=== PATIENT | female | born 1945 | race Caucasian/White ===

== ENCOUNTER 2017-11-01 21:51 | Emergency (ER) | payer MEDICARE ==
--- NOTE | 2017-11-02 00:26 | ED ---
Sudha Merino Elizabeth, scribed for Lisa Davies MD on 11/01/17 at 2238 . Lower Extremity - HPI Summary HPI Summary: This patient is a 72 year old F presenting to [facility] with a chief complaint of headache and right knee, lower leg, and ankle pain after a fall down 2 stairs that occurred at 21:00 this evening. The patient reports that she hit her head on the concrete floor. The patient rates the pain 2/10 in severity. Symptoms aggravated by weight bearing. Symptoms alleviated by lying down. The patient notes that she has previously fractured her right leg that has healed. The patient declined pain medication. - History of Current Complaint Chief Complaint: EDExtremityLower Stated Complaint: FALL Time Seen by Provider: 11/01/17 22:22 Hx Obtained From: Patient Mechanism Of Injury: Fall From Height Of: - 2 stairs Onset of Pain: Immediate Onset/Duration: Hours - since 21:00 Severity Initially: Mild Severity Currently: Mild Pain Intensity: 2 Pain Scale Used: 0-10 Numeric Timing: Constant Location: Is Discrete @ - right knee, right lower leg, right ankle, pain above right eye Associated Signs And Symptoms: Positive: Swelling, Bruising - around her right eye, Knee Pain Aggravating Factor(s): Weight Bearing Alleviating Factor(s): Rest Able to Bear Weight: Yes - Allergies/Home Medications Allergies/Adverse Reactions: Allergies Allergy/AdvReac Type Severity Reaction Status Date / Time Penicillins Allergy Anaphylatic Verified 11/01/17 22:02 Shock Sulfa (Sulfonamide Allergy Anaphylatic Verified 11/01/17 22:02 Antibiotics) Shock ENVIRONMENTAL Allergy Unknown Uncoded 09/01/15 10:24 Reaction Details Home Medications: Home Medications Azelastine HCl 1 spray NASAL DAILY 11/01/17 [History Confirmed 11/01/17] Fluoride (Sodium) [Denta 5000 Plus] 1 applic PO DAILY 11/01/17 [History Confirmed 11/01/17] PMH/Surg Hx/FS Hx/Imm Hx Endocrine/Hematology History: Reports: Hx Anemia - AT AGE 7 OR 8 - NO PROBLEMS SINCE Musculoskeletal History: Reports: Hx Arthritis - KNEES-DJD, BACK Denies: Hx Osteoporosis Sensory History: Reports: Hx Cataracts, Hx Contacts or Glasses - GLASSES Denies: Hx Hearing Aid Opthamlomology History: Reports: Hx Cataracts, Hx Contacts or Glasses - GLASSES Neurological History: Reports: Other Neuro Impairments/Disorders - 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 [place] 20 [place] [facility]. RIGHT BREAST LUMPECTOMY-2014 Hx Anesthesia Reactions: No Infectious Disease History: No Infectious Disease History: Denies: Traveled Outside the [place] in Last 30 Days - Family History Known Family History: Positive: Hypertension - Social History Alcohol Use: Rare Substance Use Type: Reports: None Smoking Status (MU): Never Smoked Tobacco Review of Systems Negative: Epistaxis Negative: Chest Pain Negative: Vomiting Skin: Other - right knee pain, right lower leg pain, right ankle pain Positive: Headache - pain above right eye All Other Systems Reviewed And Are Negative: Yes Physical Exam - Summary Physical Exam Summary: VITAL SIGNS: Reviewed. GENERAL: ~Patient is a well-developed and nourished female who is lying comfortable in the stretcher. Patient is not in any acute respiratory distress. HEAD AND FACE: No hematomas or skull depressions. No sinus tenderness. Mild ecchymosis over the right lower eyelid without welling and without tenderness. EYES: PERRLA, EOMI x 2, No injected conjunctiva, no nystagmus. EARS: Hearing grossly intact. Ear canals and tympanic membranes are within normal limits. MOUTH: Oropharynx within normal limits. NECK: Supple, trachea is midline, no adenopathy, no JVD, no carotid bruit, no c- spine tenderness, neck with full ROM. CHEST: Symmetric, no tenderness at palpation LUNGS: Clear to auscultation bilaterally. No wheezing or crackles. CVS: Regular rate and rhythm, S1 and S2 present, no murmurs or gallops appreciated. ABDOMEN: Soft, non-tender. No signs of distention. No rebound no guarding, and no masses palpated. Bowel sounds are normal. EXTREMITIES: FROM in all major joints, no cyanosis or clubbing. Swelling of the right ankle mainly over the lateral malleolus NEURO: Alert and oriented x 3. No acute neurological deficits. Speech is normal and follows commands. SKIN: Dry and warm Triage Information Reviewed: Yes Vital Signs On Initial Exam: Initial Vitals Temp Pulse Resp BP Pulse Ox 98.2 F 78 20 122/60 98 11/01/17 21:55 11/01/17 21:55 11/01/17 21:55 11/01/17 21:55 11/01/17 21:55 Vital Signs Reviewed: Yes Procedures - Splinting Location: right foot extended to mid-thigh Hand-Made Type: orthoglass Splint: posterior/U-splint Pre-Proc Neuro Vasc Exam: normal Post-Proc Neuro Vasc Exam: unchanged from pre-exam Diagnostics - Vital Signs Vital Signs Temp Pulse Resp BP Pulse Ox 11/01/17 22:21 66 128/55 97 11/01/17 21:55 98.2 F 78 20 122/60 98 - Laboratory Lab Statement: Any lab studies that have been ordered have been reviewed, and results considered in the medical decision making process. - Radiology Right Ankle Xray Interpretation: Positive (See Comments) - tri-malleolar fracture, mortise intact Radiology Interpretation Completed By: ED Physician - Dr. Davies, pending official report Right leg Xray Interpretation: Positive (See Comments) - Proximal fibular fracture Radiology Interpretation Completed By: ED Physician - Dr. Davies, pending official report - CT CT Brain CT Interpretation: No Acute Changes - no acute findings. Dr. Davies has reviewed this report CT Interpretation Completed By: Radiologist Re-Evaluation - Re-Evaluation 1st re-eval Re-Evaluation Time: 23:50 Change: Improved Comment: Patient's right foot extended to mid-thigh was splinted. Lower Extremity Course/Dx - Course Course Of Treatment: CT Brain reveals, per radiologist, no acute changes. ED physician has reviewed this radiology report. Right leg x-ray reveals proximal fibular fracture as interpreted by Dr. Davies, pending official report. Right ankle x-ray reveals tri-malleolar fracture, mortise intact, as interpreted by Dr. Davies, pending official report. In the ED course the patients right foot extended to mid-thigh was splinted with an orthoglass posterior/U-splint. Patient will be discharged home with prescription for oxycodone and follow up from Dr. Childs, orthopedist, tomorrow. The patient is agreeable with this plan. - Diagnoses Provider Diagnoses: Ankle fracture, Right fibular fracture Discharge - Sign-Out/Discharge Documenting (check all that apply): Discharge/Admit/Transfer - Discharge Plan Condition: Stable Disposition: HOME Prescriptions: oxyCODONE/Acetamin 5/325 MG* [Percocet 5/325 TAB*] 1 tab PO Q6H PRN #14 tab MDD 4 PRN Reason: Pain Patient Education Materials: Ankle Fracture (ED), Leg Fracture (ED) Referrals: Quinton Childs MD [Medical Doctor] - 2 Days Additional Instructions: Follow up with Dr. Childs, orthopedist, on 11/02/17. Return to the emergency department with any new or worsening symptoms. The documentation as recorded by the Sudha ulloa Elizabeth accurately reflects the service I personally performed and the decisions made by , Lisa Davies MD.
[2017-11-02 00:30] VITALS: BP 127/66
--- NOTE | 2017-11-02 07:56 | RAD ---
HISTORY: Fall, right knee pain COMPARISONS: None VIEWS: 4, Frontal, lateral, axial, and oblique views of the right knee FINDINGS: BONE DENSITY: Normal. BONES: There is a probable nondisplaced fracture of the proximal fibular diaphysis. JOINTS: There is moderate tricompartmental osteoarthritis. ALIGNMENT: There is no dislocation. SOFT TISSUES: Unremarkable. OTHER FINDINGS: None. IMPRESSION: PROBABLE NONDISPLACED FRACTURE OF THE PROXIMAL FIBULAR DIAPHYSIS. RECOMMEND DEDICATED IMAGING OF THE FORELEG.
--- NOTE | 2017-11-02 07:58 | RAD ---
HISTORY: Fall, lower leg pain COMPARISONS: Right knee and right ankle dated November 01, 2017 VIEWS: 2, Frontal and lateral views of the right foreleg FINDINGS: BONE DENSITY: Normal. BONES: There is a nondisplaced fracture of the posterior distal tibia and medial malleolus. There is no stress fracture of the proximal fibular diaphysis. The distal fibular fracture seen on the ankle films are not well-visualized on the current examination. JOINTS: There is osteoarthritis of the knee. ALIGNMENT: There is no dislocation. SOFT TISSUES: Unremarkable. OTHER FINDINGS: None. IMPRESSION: NONDISPLACED OF THE PROXIMAL FIBULA AND DISTAL TIBIA
--- NOTE | 2017-11-02 07:59 | RAD ---
HISTORY: Fall, right ankle pain COMPARISONS: April 18, 2006 VIEWS: 3, Frontal, lateral, and oblique views of the right ankle FINDINGS: BONE DENSITY: Normal. BONES: There is nondisplaced fractures of the posterior distal tibia. There is a nondisplaced fracture of the medial malleolus. There is a small bone fragment off the distal fibula consistent with avulsion injury.. There is chronic remote post traumatic change of the distal tibial diaphysis.. JOINTS: There is no arthropathy. ALIGNMENT: There is no dislocation. SOFT TISSUES: Unremarkable. OTHER FINDINGS: None. IMPRESSION: NONDISPLACED FRACTURES OF THE DISTAL FIBULA AND DISTAL TIBIA.
--- NOTE | 2017-11-02 08:00 | RAD ---
INDICATION: Fall. Intracranial injury. COMPARISON: None TECHNIQUE: Noncontrast axial source images were acquired from the skull base to the vertex. FINDINGS: Ventricles/sulci: The ventricles and cisterns are normal in size and configuration for age. Brain parenchyma: There is no focal parenchymal finding, evidence of intracranial mass, or intracranial mass effect. Intracranial hemorrhage:None. Extra-axial spaces: There are no abnormal extra axial fluid collections or evidence of extra-axial mass. Calvarium: There is no calvarial fracture or other calvarial abnormality. Scalp: There is no evidence of scalp or extracalvarial soft tissue abnormality. Paranasal sinuses/mastoid: The paranasal sinuses and mastoid air cells are clear. Other: None. IMPRESSION: No acute intrarenal findings
--- NOTE | 2017-11-10 07:47 | ED ---
Progress - Progress Note Progress Note: Pt's final XR read more detailed from [facility] - recommended dedicated foreleg imaging. Spoke w/ pt who reports she had surgery on w/ Dr. Alvarado - f /u is scheduled. No changes. Re-Evaluation - Re-Evaluation 1st re-eval Re-Evaluation Time: 23:50 Change: Improved Comment: Patient's right foot extended to mid-thigh was splinted. Course/Dx - Course Course Of Treatment: CT Brain reveals, per radiologist, no acute changes. ED physician has reviewed this radiology report. Right leg x-ray reveals proximal fibular fracture as interpreted by Dr. Davies, pending official report. Right ankle x-ray reveals tri-malleolar fracture, mortise intact, as interpreted by Dr. Davies, pending official report. In the ED course the patients right foot extended to mid-thigh was splinted with an orthoglass posterior/U-splint. Patient will be discharged home with prescription for oxycodone and follow up from Dr. Childs, orthopedist, tomorrow. The patient is agreeable with this plan. - Diagnoses Provider Diagnoses: Ankle fracture, Right fibular fracture Discharge - Sign-Out/Discharge Documenting (check all that apply): Post-Discharge Follow Up - Discharge Plan Condition: Stable Disposition: HOME Patient Education Materials: Ankle Fracture (ED), Leg Fracture (ED) Referrals: Quinton Childs MD [Medical Doctor] - 2 Days Additional Instructions: Follow up with Dr. Childs, orthopedist, on 11/02/17. Return to the emergency department with any new or worsening symptoms. - Billing Disposition and Condition Condition: STABLE Disposition: HOME
== END 2017-11-02 00:30 | disposition home or self-care (01) ==
LOC: ED 21:51
DX: S82.854A Nondisplaced trimalleolar fracture of right lower leg, initial encounter for closed fracture (principal); S82.831A Other fracture of upper and lower end of right fibula, initial encounter for closed fracture; W10.9XXA Fall (on) (from) unspecified stairs and steps, initial encounter; Y92.9 Unspecified place or not applicable; R51 Headache; M17.11 Unilateral primary osteoarthritis, right knee; Z88.2 Allergy status to sulfonamides; Z88.0 Allergy status to penicillin
CPT/HCPCS: 70450; 99283

== ENCOUNTER 2017-11-08 07:21 | Day surgery (SDC) | payer MEDICARE ==
[~2017-11-08 07:21] MED LIST: Buffered Lidocaine 0.9% SYRIN* 5 ML/SYR SYRINGE INTRADERM ONE
[2017-11-08] MEDS ORDERED: PROCHLORPERAZINE INJ 5 MG/ML 2 ML VIAL IV PRN (08:31)
[2017-11-08] MEDS ORDERED: HYDROmorphone INJ* 1 MG/ML CARPUJECT SYRINGE IV PRN (08:31)
[2017-11-08] MEDS ORDERED: Ondansetron ODT TAB* 4 MG PO PRN (08:31)
[2017-11-08] MEDS ORDERED: DiMENhydriNATE IV* 50 MG/ML VIAL IV PUSH PRN (08:31)
[2017-11-08] MEDS ORDERED: Naloxone* 0.4 MG/ML 1 ML VIAL IV PRN (08:31)
[2017-11-08] MEDS ORDERED: Acetaminophen TAB* 325 MG PO PRN (08:31)
[2017-11-08] MEDS ORDERED: fentaNYL* 50 MCG/ML 2 ML VIAL (100 MCG VIAL) IV PRN (08:31)
[2017-11-08] MEDS ORDERED: fentaNYL* 50 MCG/ML 2 ML VIAL (100 MCG VIAL) ONE (08:47)
[2017-11-08] MEDS ORDERED: Midazolam* 1 MG/ML 2 ML VIAL (2 MG) ONE (08:47)
[2017-11-08] MEDS ORDERED: Clindamycin 900 MG IVPREMIX(* 900 MG/50 ML SDV IV ONE (08:50)
[2017-11-08] MEDS ORDERED: Bupivacaine-MPF SPINAL* 7.5 MG/2 ML AMP ONE (10:16)
[2017-11-08] MEDS ORDERED: Lidocaine 2% PF * 5 ML VIAL ONE (10:17)
[2017-11-08] MEDS ORDERED: DiMENhydriNATE IV* 50 MG/ML VIAL ONE (10:17)
[2017-11-08] MEDS ORDERED: Famotidine IV* 10 MG/ML 2 ML (20 mg) ONE (10:17)
[2017-11-08] MEDS ORDERED: Propofol* 10 MG/ML 20 ML BTL IV PUSH ONE (10:17)
[2017-11-08] MEDS ORDERED: EPHEDrine (Pressors)* 50 MG/ML VIAL ONE (10:44)
[2017-11-08] MEDS ORDERED: Ketorolac INJ* 30 MG/ML 1 ML VIAL ONE (11:04)
--- NOTE | 2017-11-08 12:01 | OP ---
Operative Report - Blank - Operative Report Date of Operation: 11/08/17 Note: PATIENT: Kamille Padilla DATE OF : 1945 DATE OF SURGERY: 11/08/2017 SURGEON: Hayden Zabala MD CLINIC ADMINISTRATOR: EVERTON Mcgee, whos assistance was necessary for positioning, retraction, help with instrumentation, and closure. ANESTHESIOLOGIST: Dr. Yung PREOPERATIVE DIAGNOSIS: Right lower extremity Maisonneuve injury POSTOPERATIVE DIAGNOSIS: Right lower extremity Maisonneuve injury OPERATION: 1. Open reduction and internal fixation of the medial malleolus fracture of a bimalleolar ankle fracture 2. Open reduction and internal fixation of right distal tib-fib syndesmosis. 3. Closed treatment of right fibular shaft fracture. ANESTHESIA: Spinal IMPLANTS: Synthes small fragment screws and cannulated screws. TOURNIQUET TIME: Less than one hour with a well-padded thigh tourniquet at 250mmHg SPECIMENS: none ESTIMATED BLOOD LOSS: minimal COMPLICATIONS: none STATUS: Stable from the operating room to the recovery room and then home. INDICATIONS FOR PROCEDURE: Kamille sustained a right Maisonneuve injury. Both operative and non operative treatment alternatives were reviewed. Further, the nature and risks of surgery were reviewed in careful detail, in the office as well as the pre-operative holding area. Our discussions regarding the risks of surgery included, but were not limited to, infection, wound problems, nerve injury, neuroma, RSD, persistent symptoms, blood clot, nonunion, malunion, post-traumatic arthritis, hardware failure, failure of the surgery, and even the remote chance of catastrophic complication, including loss of limb. DESCRIPTION OF PROCEDURE: The patient was seen in the preoperative holding unit and informed written consent was obtained. The appropriate extremity was marked. The patient was then brought to the operating room and carefully positioned on the operating room table. Anesthesia was induced. All bony prominences were padded with great care. A well-padded thigh tourniquet was placed. A chlorhexidine based pre- scrub was performed followed by a chloraprep prep and drape in standard sterile fashion. A surgical safety pause was then conducted in which we confirmed the appropriate patient, extremity, planned procedure, availability of equipment, indication and administration of prophylactic antibiotics, and DVT prophylaxis in the form of a compression boot on the non-surgical extremity. I began with Esmarch exsanguination of the limb and inflated the tourniquet. I made an approximately 6 cm long longitudinal incision over the distal fibula. The distal tib-fib syndesmosis was grossly disrupted. I reduced this manually and then held this with a periarticular reduction clamp. I placed two 3.5 mm Synthes small fragment screws across the syndesmosis under fluoroscopic guidance. The reduction clamp was removed and the syndesmosis was held well reduced. I then exposed the fracture of the anterolateral distal tibia. The fracture site was cleaned of hematoma. I reduced this with the use of a dental pick and held it provisionally with a K wire. I then placed a 3.0 mm cannulated screw, which held the fracture fragment well reduced. I then made a separate, approximately 4cm longitudinal incision over the medial malleolus. The fracture was exposed and hematoma was removed. Reduction of the medial malleolar fracture was obtained with a pointed reduction clamp. I placed a guidewire for 4.0 mm cannulated screw. I confirmed the position of the guidewire fluoroscopically. I then overdrilled the wire and placed a partially threaded 4.0 mm cannulated screw. I then removed the guidewire and obtained fluoroscopic images. The syndesmosis and fractures were held well reduced. The fibula was of good length. The ankle mortise was intact. On the lateral view, the posterior malleolus fracture was anatomically reduced, so I decided not to perform an open reduction and internal fixation. I visualized fluoroscopically the proximal fibula fracture which had not displaced. I made the decision to treat this in a closed manner. At this point, we irrigated the wound copiously and then closed in layers meticulously utilizing 3-0 Monocryl for the deep and subdermal layers and laura for the skin. A sterile dressing was then applied followed by a splint with the ankle in a neutral position. The patient was then awakened from anesthesia and transferred to the recovery room in stable condition. There were no complications. All needle and sponge counts were correct at the end of the case. ATTESTATION: I attest I was present and scrubbed and performed the critical portions of the procedure myself. POSTOPERATIVE PLAN: The postop plan is for [id number] for an anticipated duration of 6 weeks. Follow-up will be in 2 weeks. At that time we will likely transition into a [id number] aircast boot.
[2017-11-08 14:08] VITALS: BP 117/62
--- NOTE | 2017-11-12 10:02 | RAD ---
CPT II Codes: G9500 INDICATION: Right ankle Maisonneuve fracture TECHNIQUE: Intraoperative fluoroscopy was provided during right ankle ORIF. FINDINGS: 5 spot films depict medullary screw fixation of the distal right ankle. Fluoroscopy time: 52 seconds IMPRESSION: As above.
== END 2017-11-08 14:28 | disposition home or self-care (01) ==
LOC: OR 07:21
PROVIDERS: ATTEND Orthopaedic Surgery
DX: S82.861A Displaced Maisonneuve's fracture of right leg, initial encounter for closed fracture (principal); Z85.3 Personal history of malignant neoplasm of breast; M19.90 Unspecified osteoarthritis, unspecified site; W10.9XXA Fall (on) (from) unspecified stairs and steps, initial encounter; Y92.9 Unspecified place or not applicable
CPT/HCPCS: 76000; C1713; J1240; J1885; J2250; J2704; J3010

== ENCOUNTER 2018-03-28 06:22 | Day surgery (SDC) | payer MEDICARE ==
[~2018-03-28 06:22] MED LIST changes: +DiMENhydriNATE IV* 50 MG/ML VIAL IV PUSH PRN; +Famotidine IV* 10 MG/ML 2 ML (20 mg) IV ONE; +Naloxone* 0.4 MG/ML 1 ML VIAL IV PRN; +Ondansetron TAB* 4 MG PO ONE; +PROCHLORPERAZINE INJ 5 MG/ML 2 ML VIAL IV PRN; +fentaNYL* 50 MCG/ML 2 ML VIAL (100 MCG VIAL) IV PRN; +oxyCODONE/Acetamin 5/325 MG* TAB PO PRN
[2018-03-28] MEDS ORDERED: Bupivacaine 0.5% SDV PF* 30ML VIAL ONE (06:45)
[2018-03-28] MEDS ORDERED: Famotidine IV* 10 MG/ML 2 ML (20 mg) ONE (06:57)
[2018-03-28] MEDS ORDERED: Clindamycin 900 MG/D5W BAG(*) 900 MG/50 ML BAG IVPB ONE (06:57)
[2018-03-28] MEDS ORDERED: Ondansetron ODT TAB* 4 MG ONE (06:57)
[2018-03-28] MEDS ORDERED: Midazolam* 1 MG/ML 2 ML VIAL (2 MG) ONE (07:07)
[2018-03-28] MEDS ORDERED: fentaNYL* 50 MCG/ML 2 ML VIAL (100 MCG VIAL) ONE (07:07)
[2018-03-28] MEDS ORDERED: KETAMINE HCL* 50 MG/ML 10 ML VIAL ONE (07:07)
[2018-03-28] MEDS ORDERED: EPHEDrine (Pressors)* 50 MG/ML VIAL ONE (08:01)
[2018-03-28] MEDS ORDERED: Propofol* 10 MG/ML 20 ML BTL IV PUSH ONE (08:01)
[2018-03-28] MEDS ORDERED: Lidocaine 2% PF * 5 ML VIAL ONE (08:02)
--- NOTE | 2018-03-28 08:32 | OP ---
Operative Report - Blank - Operative Report Date of Operation: 03/28/18 Note: PATIENT: Kamille Padilla DATE OF : 1945 DATE OF SURGERY: 03/28/2018 SURGEON: Hayden Zabala MD DELIVERY MOTORCYCLE DRIVER: EVERTON Mcgee, whos assistance was necessary for positioning, retraction, help with instrumentation, and closure. ANESTHESIOLOGIST: Dr. Brooks PREOPERATIVE DIAGNOSIS: Right ankle painful retained hardware POSTOPERATIVE DIAGNOSIS: Right ankle painful retained hardware OPERATION: 1. Right ankle, removal of implants, deep. 2. Stress fluoroscopy performed by surgeon under anesthesia. ANESTHESIA: MAC IMPLANTS: Removed two 3.5mm synthes small fragment screws TOURNIQUET TIME: Less than 1 hour with a calf Esmarch tourniquet SPECIMENS: none ESTIMATED BLOOD LOSS: minimal COMPLICATIONS: none STATUS: Stable from the operating room to the recovery room and then home. INDICATIONS FOR PROCEDURE: Kamille had a prior ORIF for a Maisonneuve injury. Both operative and non operative treatment alternatives were reviewed. Further, the nature and risks of surgery were reviewed in careful detail, in the office as well as the pre- operative holding area. Our discussions regarding the risks of surgery included , but were not limited to, infection, wound problems, nerve injury, neuroma, RSD , persistent symptoms, blood clot, fracture, syndesmotic instability, need for further surgery, post-traumatic arthritis, failure of the surgery, and even the remote chance of catastrophic complication, including loss of limb. DESCRIPTION OF PROCEDURE: The patient was seen in the preoperative holding unit and informed written consent was obtained. The appropriate extremity was marked. The patient was then brought to the operating room and carefully positioned on the operating room table. Anesthesia was induced. All bony prominences were padded with great care. A chlorhexidine based pre-scrub was performed followed by a chloraprep prep and drape in standard sterile fashion. A surgical safety pause was then conducted in which we confirmed the appropriate patient, extremity, planned procedure, availability of equipment, indication and administration of prophylactic antibiotics, and DVT prophylaxis in the form of a compression boot on the non-surgical extremity. We began by performing an Esmarch exsanguination of the limb, and placement of the calf Esmarch tourniquet. I injected local anesthetic to the area of the prior surgical incision. I utilized the prior lateral ankle incision. I utilized blunt dissection down to the level of the hardware. I then utilized a scalpel to sharply expose the screw head. I then removed the screws utilizing a screwdriver without difficulty. Both of the screws came out in their entirety. I then performed stress testing of the syndesmosis under fluoroscopy. I performed an external rotation stress test. No instability was appreciated at the syndesmosis or ankle mortise. Final fluoroscopic images were obtained demonstrating removal of the hardware. At this point, we irrigated copiously and then closed in layers meticulously utilizing 3-0 Monocryl and 3-0 nylon for the skin. A sterile dressing was then applied. The patient was then awakened from anesthesia and transferred to the recovery room in stable condition. There were no complications. All needle and sponge counts were correct at the end of the case. ATTESTATION: I attest I was present and scrubbed and performed the critical portions of the procedure myself. POSTOPERATIVE PLAN: The plan is to remove the sutures in 2 weeks. She can be WBAT in the boot.
[2018-03-28 08:35] VITALS: BP 112/64
--- NOTE | 2018-03-29 07:11 | RAD ---
INDICATION: Right ankle hardware removal. COMPARISON: Comparison is made with a prior x-ray study of the right ankle from March 12, 2018. TECHNIQUE: 15 seconds of intermittent fluoroscopic guidance were provided and a single spot film of the right ankle was obtained in the operating room. FINDINGS: 2 of the syndesmotic surgical screws have been removed. IMPRESSION: INTRAOPERATIVE CONTROL FILMS. CPT II Codes: G9500
== END 2018-03-28 08:53 | disposition home or self-care (01) ==
LOC: OR 06:22
PROVIDERS: ATTEND Orthopaedic Surgery
DX: T84.84XA Pain due to internal orthopedic prosthetic devices, implants and grafts, initial encounter (principal); Y83.1 Surgical operation with implant of artificial internal device as the cause of abnormal reaction of the patient, or of later complication, without mention of misadventure at the time of the procedure; S82.861D Displaced Maisonneuve's fracture of right leg, subsequent encounter for closed fracture with routine healing; X58.XXXD Exposure to other specified factors, subsequent encounter; Y92.9 Unspecified place or not applicable; Z85.3 Personal history of malignant neoplasm of breast
CPT/HCPCS: 76000; 88300; A9270-GY; J2250; J2704; J3010